=== PATIENT | male | born 1970 | race Caucasian/White ===

== ENCOUNTER 2021-03-22 21:56 | Observation (INO) | payer OTHER, SELFPAY ==
--- NOTE | ~2021-03-22 | CT_ITS ---
EXAMINATION: CTA chest PE protocol EXAM DATE: 03/22/2021 23:02 INDICATION: Dyspnea and elevated d-dimer. TECHNIQUE: Spiral CTA of the chest (pulmonary arteries) was performed with 100 cc Omnipaque 350 intr avenous contrast injection. Images were acquired during the pulmonary arterial phase. Coronal maxi mum intensity projection 3D-reconstructions were created by the technologist on dedicated workstation . Axial, coronal and sagittal reformatted images were reviewed. The dose-length product (DLP) for t his examination was 413.69 mGy-cm. The exposure was tailored according to patient size (auto mA exp osure control), and iterative reconstruction (ASIR) was used as additional dose reduction technique. There is no prior study for comparison. FINDINGS: Pulmonary arteries are well opacified and without intraluminal filling defects. Poor right heart function with contrast refluxing into the IVC and right hepatic vein. Mild prevascular, medias tinal lymphadenopathy. Some calcified subcarinal, right hilar lymph nodes from prior granulomatous pr ocess. Mild interlobular septal thickening suspicious for mild pulmonary edema. Aorta are not opacifi ed at time of imaging. The lungs are clear. There are no pleural or pericardial effusions. Trach eobronchial tree is patent. There is no mediastinal, hilar or axillary lymphadenopathy. There is no pneumothorax. Heart normal in size. There is mild coronary arterial calcification, arterial sc lerosis. Upper abdomen is unremarkable. There is thoracic spondylosis without osteoblastic or oste olytic lesions identified. IMPRESSION: 1. Findings consistent with CHF exacerbation. Mild pulmonary edema. 2. Mild mediastinal, prevascular lymphadenopathy most likely reactive. 3. No pulmonary emboli. Reviewed, dictated and finalized at location A.
--- NOTE | ~2021-03-22 | XR_ITS ---
EXAMINATION: XR chest 2V EXAM DATE: 03/22/2021 22:37 INDICATION: Shortness of breath. Chest pain, tachycardia. High blood pressure. TECHNIQUE: Frontal and lateral projections of the chest obtained and reviewed. Comparison is made to prior examination from 07/09/2020. FINDINGS: Right basilar granuloma. The lungs are otherwise clear. There are no pleural effusions. T he cardiomediastinal silhouette is within normal limits. There is no pneumothorax suspected. The neal lulu and soft tissues are unremarkable. IMPRESSION: No acute cardiopulmonary findings. Reviewed, dictated and finalized at location A.
[2021-03-22 22:02] VITALS: BP 124/100; PULSE 131; RESP 15; TEMP 37.2; O2SAT 98
--- NOTE | 2021-03-22 22:05 | ECG_ITS ---
Measurements Intervals [place] Rate: 130 P: 53 OK: 120 QRS: -11 QRSD: 84 T: 89 QT: 295 QTc: 434 Interpretive Statements SINUS TACHYCARDIA ANTEROSEPTAL INFARCT, AGE INDETERMINATE BORDERLINE T WAVE ABNORMALITY- LAT/HIGH LAT LEADS ABNORMAL ECG Electronically Signed On 03-23-2021 7:15:32 CDT by Bob Carson D.O.
[2021-03-22 22:13] LABS: Basophils Absolute Auto 0.1 K/mm3 (0.0-0.1); Basophils Percent Auto 0.6 % (0.2-1.2); Eosinophils Absolute Auto 0.1 K/mm3 (0-0.3); Eosinophils Percent Auto 0.5 % (0-4.4); Hematocrit 50.9 % (42.0-52.0); Hemoglobin 16.9 g/dL (14.0-18.0); Immature Granulocyte Absolute 0.03 K/mm3 (0.00-0.031); Immature Granulocyte Percent A 0.2 % (0-0.5); Lymphocytes Absolute Auto 4.32 K/mm3 (0.9-3.2); Lymphocytes Percent Auto 34.5 % (18.3-44.2); Mean Corpuscular HGB Conc 33.2 g/dl (32-36); Mean Corpuscular Hemoglobin 29.4 pg (26-34); Mean Corpuscular Volume 88.5 fl (80-100); Mean Platelet Volume 11.7 fl (7.4-10.4); Monocytes Absolute Auto 0.9 K/mm3 (0.1-0.6); Monocytes Percent Auto 7.1 % (2.6-8.5); Neutrophils Absolute Auto 7.1 K/mm3 (1.3-6.7); Neutrophils Percent Auto 57.1 % (45.5-73.1); Platelet Count Result 196 k/mm3 (150-375); Red Blood Count 5.75 M/mm3 (4.6-6.20); Red Cell Distribution Width 14.5 % (11.5-14.5); White Blood Count 12.5 K/mm3 (4.5-10.0)
--- NOTE | 2021-03-22 22:20 | ED.CHESTPAIN ---
HPI - Chest Pain General Chief Complaint: Chest Pain Stated Complaint: CP Time Seen by Provider: 03/22/21 22:02 Source: RN notes reviewed History of Present Illness HPI narrative: Patient presents emergency department from work for dyspnea and chest tightness. Patient states symptoms began yesterday states he began to notice that with exertion he would have increasing shortness of breath and a harder time catching his breath he states that with this he did feel a tightness across his chest. He states when he rests this resolves states the symptoms became worse this evening he also feels like his heart has been beating rapidly he denies any fevers or chills abdominal pain nausea vomiting. Denies any previous cardiac history Related Data Allergies Allergy/AdvReac Type Severity Reaction Status Date / Time codeine Allergy Anaphylaxis Verified 03/23/21 00:11 Review of Systems Review of Systems: Narrative: Gen.: Denies fevers or chills ENT: Denies congestion Respiratory: See HPI CV: See HPI GI: Denies abdominal pain nausea, emesis or diarrhea Musculoskeletal: Denies back pain or muscle pain Neuro: Denies numbness, tingling, weakness or focal weakness Skin: Denies rash Except as documented, all other systems reviewed and negative [facility] Past Medical History Medical History (Updated 03/23/21 @ 00:27 by Manas Cardenas DO) Asthma Social History Social History (Updated 03/22/21 @ 23:42 by Manas Cardenas DO) Smoking status: Never smoker Gender identity (if verbalized by the patient): Male Exam Narrative: Exam Narrative: APPEARANCE: No acute distress, nontoxic, resting in bed EYES: EOMI HEENT: Normocephalic, atraumatic, OMM RESPIRATORY: No respiratory distress Clear to auscultation bilaterally with no rhonchi wheezing or rales. CARDIOVASCULAR: Tachycardic and regular without murmurs rubs or gallops. ABDOMINAL: Soft, nontender, nondistended, no rebound or guarding MUSCULOSKELETAl: Moves all extremities. No clubbing, cyanosis or edema. NEURO: Awake and alert. Following commands, speech normal, no focal deficits SKIN:: Warm, dry. No rashes lesions or abrasions PSYCHIATRIC: Normal affect/mood, Course Course Emergency Course: Discussed with Dr. Macario presentation work-up discussed EKG an EKG was sent to Dr. Macario for review and feels no acute STEMI at this time. This time agrees with admission to their service. Request patient received Lasix and aspirin will follow as inpatient Discussed with patient and family results of workup and diagnosis. Discussed need for admission. Patient and family understand and agree to current treatment plan Vital Signs Vital signs: Vital Signs Temperature 98.9 F 03/22/21 22:02 Pulse Rate 131 H 03/22/21 22:02 Respiratory Rate 15 03/22/21 22:02 Blood Pressure 124/100 H 03/22/21 22:02 Pulse Oximetry 98 03/22/21 22:02 Temperature 98.9 F 03/22/21 22:02 Pulse Rate 124 H 03/22/21 22:41 Respiratory Rate 19 03/22/21 22:39 Blood Pressure 126/100 H 03/22/21 22:39 Pulse Oximetry 96 03/22/21 22:39 MDM - Chest Pain Lab Data Result diagrams: 03/22/21 22:08 03/22/21 22:08 Labs: Lab Results 03/22/21 03/22/21 03/22/21 Range/Units 22:08 22:08 22:08 WBC 12.5 H (4.5-10.0) K/mm3 RBC 5.75 (4.6-6.20) M/mm3 Hgb 16.9 (14.0-18.0) g/dL Hct 50.9 (42.0-52.0) % MCV 88.5 (80-100) fl MCH 29.4 (26-34) pg MCHC 33.2 (32-36) g/dl RDW 14.5 (11.5-14.5) % Plt Count 196 (150-375) k/mm3 MPV 11.7 H (7.4-10.4) fl Immature Gran % (Auto) 0.2 (0-0.5) % Neut % (Auto) 57.1 (45.5-73.1) % Lymph % (Auto) 34.5 (18.3-44.2) % [place] % (Auto) 7.1 (2.6-8.5) % Eos % (Auto) 0.5 (0-4.4) % Baso % (Auto) 0.6 (0.2-1.2) % Lymph # (Auto) 4.32 H (0.9-3.2) K/mm3 [place] # (Auto) 0.9 H (0.1-0.6) K/mm3 Eos # (Auto) 0.1 (0-0.3) K/mm3 Baso # (Auto) 0.1 (0.0-0.1) K/mm3 Abs I
[2021-03-22 22:23] LABS: Anion Gap 12 mmol/L (8-16); Blood Urea Nitrogen 16 mg/dL (9-20); Calcium 9.9 mg/dL (8.4-10.2); Carbon Dioxide 22 mmol/L (22-30); Chloride 107 mmol/L (98-107); Estimated CRCL calculation 77 ml/min; Estimated Glomerular Filt Rate > 60; Glucose 107 mg/dL (75-110); Potassium 4.5 mmol/L (3.4-5.0); Sodium 141 mmol/L (137-145)
[2021-03-22 22:28] LABS: INR 1.2; Prothrombin Time 15.6 Seconds (11.1-14.7)
[2021-03-22 22:29] LABS: Partial Thromboplastin Time 29.7 SECONDS (22.3-36.8)
[2021-03-22 22:31] LABS: D Dimer 1.06 ug/mL (<0.48)
[2021-03-22 22:35] LABS: Troponin I 0.025 ng/mL (0.000-0.034)
[2021-03-22 22:39] VITALS: BP 126/100; PULSE 123; RESP 19; O2SAT 96
[2021-03-22 22:41] VITALS: PULSE 124
[2021-03-22] MEDS: SODIUM CHLORIDE 0.9% IV 1,000 ML 999 ML IV CONT (22:42)
[2021-03-22] MEDS: ASPIRIN 81 MG CHEWABLE TABLET 324 MG PO (22:42)
[2021-03-22 22:45] VITALS: BP 119/97; PULSE 120; RESP 21; O2SAT 97
--- NOTE | 2021-03-22 23:25 | ECG_ITS ---
Measurements Intervals [place] Rate: 111 P: 68 OK: 163 QRS: -22 QRSD: 81 T: 60 QT: 326 QTc: 445 Interpretive Statements SINUS TACHYCARDIA LEFT ATRIAL ENLARGEMENT MINIMAL Q WAVES- INFERIOR LEADS ANTEROSEPTAL INFARCT, AGE INDETERMINATE BORDERLINE T WAVE ABNORMALITY- INF/HIGH LAT LEADS ABNORMAL ECG Electronically Signed On 03-23-2021 7:24:22 CDT by Bob Carson D.O.
[2021-03-22 23:30] VITALS: BP 108/88; PULSE 115; O2SAT 96
[2021-03-22 23:46] VITALS: BP 104/92; PULSE 115; RESP 19
[2021-03-23] VITALS (11 sets, daily range): BP systolic 110–125; BP diastolic 81–108; PULSE 106–125; RESP 11–25; TEMP 36.1–36.7; O2SAT 96–99; BMI 24.0
[2021-03-23 00:07] LABS: NT Pro B Type Natriuretic Pept 4860 pg/mL (5-100)
[2021-03-23] MEDS: FUROSEMIDE INJ 40 MG/4 ML VIAL IV PUSH (00:12)
--- NOTE | 2021-03-23 00:50 | PC.NURSE ---
Called floor to give report, floor states pt will go to ICU overflow. Floor will call back with room and bed number.
[2021-03-23] MEDS: ONDANSETRON INJ 4 MG/2 ML VIAL IV PUSH ×3 (02:30→18:34)
--- NOTE | 2021-03-23 02:36 | ADMIMU ---
This patient, Yunior Rodriguez, was admitted to IMU status, and placed in Intensive Care Unit-8. Patient/family oriented to hospital policies and general routines including ID bracelet, bed and alarms, visiting hours, pain management, procedures, bathroom and other care routines, personal items, smoking policy, room service/diet, and visiting hours. Valuables list has been completed. Information on how to activate the Rapid Response Team has been discussed. Patient/Family are encouraged to report perceived risks to care and to ask questions if they do not understand what they are told or what they should do.
[2021-03-23 02:51] LABS: Troponin I 0.025 ng/mL (0.000-0.034)
[2021-03-23 04:23] LABS: Basophils Absolute Auto 0.1 K/mm3 (0.0-0.1); Basophils Percent Auto 0.9 % (0.2-1.2); Eosinophils Absolute Auto 0.1 K/mm3 (0-0.3); Eosinophils Percent Auto 0.8 % (0-4.4); Hematocrit 45.4 % (42.0-52.0); Hemoglobin 15.2 g/dL (14.0-18.0); Immature Granulocyte Absolute 0.02 K/mm3 (0.00-0.031); Immature Granulocyte Percent A 0.2 % (0-0.5); Lymphocytes Absolute Auto 3.67 K/mm3 (0.9-3.2); Lymphocytes Percent Auto 38.3 % (18.3-44.2); Mean Corpuscular HGB Conc 33.5 g/dl (32-36); Mean Corpuscular Hemoglobin 29.5 pg (26-34); Mean Corpuscular Volume 88.2 fl (80-100); Mean Platelet Volume 11.4 fl (7.4-10.4); Monocytes Absolute Auto 0.7 K/mm3 (0.1-0.6); Monocytes Percent Auto 6.9 % (2.6-8.5); Neutrophils Absolute Auto 5.1 K/mm3 (1.3-6.7); Neutrophils Percent Auto 52.9 % (45.5-73.1); Platelet Count Result 172 k/mm3 (150-375); Red Blood Count 5.15 M/mm3 (4.6-6.20); White Blood Count 9.6 K/mm3 (4.5-10.0)
[2021-03-23 04:33] LABS: Anion Gap 8 mmol/L (8-16); Blood Urea Nitrogen 15 mg/dL (9-20); Calcium 8.9 mg/dL (8.4-10.2); Carbon Dioxide 25 mmol/L (22-30); Chloride 104 mmol/L (98-107); Estimated CRCL calculation 84 ml/min; Estimated Glomerular Filt Rate > 60; Glucose 102 mg/dL (75-110); Sodium 137 mmol/L (137-145)
[2021-03-23 04:45] LABS: Troponin I 0.026 ng/mL (0.000-0.034)
--- NOTE | 2021-03-23 06:00 | ECHO_ITS ---
Patient Info Name: Yunior Rodriguez Age: 51 years : 1970 Gender: Male Ht: 72 in Wt: 190 lbs BSA: 2.10 m2 HR: 112 bpm BP: 120 / 97 mmHg Heart Rhythm: Tachycardia, Sinus Rhythm Technical Quality: Good Exam Date: 03/23/2021 10:10 AM Exam Location: [facility] Pulmonary Patient Status: Outpatient Admit Date: 03/22/2021 Staff Ordering Physician: Manas Cardenas DO Sales Mgr: Jori Tello, NAWAF, RT Attending Provider: Antoinette Macario MD Referring Physician: Ronald VILLALBA; Exam Type: CA echo doppler color flow Study Info Indications R07.9 - Chest pain, unspecified Complete two-dimensional, color flow and Doppler transthoracic echocardiogram is performed. Strain analysis performed. Summary 1. Complete two-dimensional, color flow and Doppler transthoracic echocardiogram is performed. 2. Left ventricular chamber dimension is mildly enlarged. 3. Left ventricular systolic function is severely reduced, estimated at 25-30%. 4. The left ventricular diastolic function is grade II diastolic dysfunction. 5. Right ventricular chamber dimension is normal. 6. Right ventricular systolic function is reduced. 7. Although not clearly visualized, cannot exclude apical thrombus due to heavy trabeculation. 8. Right atrial chamber dimension is severely enlarged. 9. There is no aortic valve stenosis. 10. There is mild mitral valve regurgitation. 11. There is mild tricuspid valve regurgitation. 12. No pulmonary hypertension, estimated pulmonary arterial systolic pressure is 34 mmHg. 13. Dilated inferior vena cava with no collapse upon inspiration consistent with significantly elevated right atrial pressure, 15 mmHg. Left Ventricle Left ventricular chamber dimension is mildly enlarged. Left ventricular systolic function is severely reduced, estimated at 25-30%. There is no increased left ventricular wall thickness. The left ventricular diastolic function is grade II diastolic dysfunction. Global longitudinal strain is severely elevated at -4 %. Although not clearly visualized, cannot exclude apical thrombus due to heavy trabeculation. Right Ventricle Right ventricular chamber dimension is normal. Right ventricular systolic function is reduced. Left Atria Left atrial chamber dimension is mildly enlarged. Right Atria Right atrial chamber dimension is severely enlarged. Aortic Valve The aortic valve is not well visualized. There is no aortic valve stenosis. There is no aortic valve regurgitation. Pulmonic Valve The pulmonic valve is not well visualized. Mitral Valve The mitral valve has normal leaflets. There is mild mitral valve regurgitation. Tricuspid Valve The tricuspid valve leaflets are normal. There is mild tricuspid valve regurgitation. No pulmonary hypertension, estimated pulmonary arterial systolic pressure is 34 mmHg. Pericardium/Pleural The pericardium appears normal. There is trivial pericardial effusion. Inferior Vena Cava Dilated inferior vena cava with no collapse upon inspiration consistent with significantly elevated right atrial pressure, 15 mmHg. Aorta The aortic root size at the sinus of Valsalva is normal. Left Ventricular Outflow Tract Name Value Normal LVOT 2D LV
[2021-03-23] MEDS: ASPIRIN 81 MG CHEWABLE TABLET 324 MG PO ×2 (07:49→07:54)
[2021-03-23] MEDS: carvediloL 3.125 MG TABLET PO ×2 (14:47→21:00)
--- NOTE | 2021-03-23 15:17 | PM.IMHP ---
H&P: HPI History of Present Illness Date/Time: Date of service: 03/23/21 15:17 Cardiology H&P with chief complaint of shortness of breath and chest pain. Chief Complaint: Shortness of breath and chest pain the past 1-2 days. 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 Patient admits over the past 2 months he has been a bit fatigued, slightly more short of breath with some abdominal fullness otherwise quite mild and was able to remain active without marked limitation. He denies significant changes weight but did admit to or shortness of breath bending over progressively with past couple weeks in for the past few days more prominent exertional dyspnea and fatigue. Stairs and hills or particularly difficult for him. He denies fevers, chills or recent illnesses. 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 He states he was feeling 90% after COVID and remains very active caring for his 3 children. He has never experienced symptoms similar to this. CT angiogram of the chest revealed no pulmonary embolism, reactive lymphadenopathy with pulmonary vascular congestion and cardiomegaly. D-dimer was mildly elevated 1.0. He had flat indeterminate troponin 0.025. EKG abnormal with probable anterior [place] age undetermined. He has no known history of CAD, CHF. He denies lower extremity edema but admits to orthopnea. No history of LENNY. He drinks approximately 2 pots of caffeinated coffee as he works nights but states he sleeps well otherwise. He remains very active as an outpatient and had no limitations previously. No near-syncope, syncope. He noted occasional palpitations of late which is new and while hospitalized noted corresponding with PVCs and a nonsustained VT run. 2D echo obtained earlier today revealed EF 25-30%, no significant valve pathology. Severe right atrial enlargement, mild left atrial enlargement. He admits he has been under significant stress with relationships past couple of months. Review of Systems Review of Systems: All systems reviewed & are unremarkable except as noted in HPI and below Constitutional: Constitutional: Reports as per HPI, Reports no additional constitutional complaints and Reports fatigue Eyes: Eyes: Reports as per HPI and Reports no additional eye complaints ENT: Reports system reviewed and no additional complaints, except as documented and Reports as per HPI Cardiovascular: Cardiovascular: Reports as per HPI, Reports no additional cardiovascular complaints, Reports chest pain, Reports diaphoresis, Denies pedal edema, Denies leg edema and Reports palpitations Respiratory: Respiratory: Reports as per HPI, Reports no additional respiratory complaints, Denies hemoptysis, Reports dyspnea and Reports dyspnea on exertion Gastrointestinal: Gastrointestinal: Reports as per HPI, Reports no additional gastrointestinal complaints and Reports bloating Genitourinary: Genitourinary: Reports no additional male genitourinary complaints and Reports as per HPI Musculoskeletal: Musculoskeletal: Reports no additional musculoskeletal complaints and Reports as per HPI Integumentary/Breasts: Skin/Breast: Reports system reviewed and no additional complaints, except as docu and Reports as per HPI Neurologic: Reports system reviewed and no additional complaints, except as documented and Reports as per HPI Psychiatric: Psychiatric: Reports no additional psychiatric complaints, Reports as per HPI and Reports anxiety Endocrine: Endocrine: Reports no additional endocrine complaints and Reports as per HPI Hematologic/Lymphatic: Hematologic/Lymphatic: Reports no additional hematologic/lymphat
[2021-03-23] MEDS: ENOXAPARIN 40 MG/0.4 ML SYRINGE SUB-Q (21:00)
[2021-03-23] MEDS: SACUBITRIL/VALSARTAN 24-26 MG TABLET 1 TAB PO (21:00)
[2021-03-24] VITALS (24 sets, daily range): BP systolic 95–134; BP diastolic 71–90; PULSE 89–119; RESP 12–24; TEMP 36.2–37.2; O2SAT 94–98
--- NOTE | 2021-03-24 | ECHO_ITS ---
Patient Info Name: Yunior Rodriguez Age: 51 years : 1970 Gender: Male Ht: 72 in Wt: 177 lbs BSA: 2.02 m2 HR: 95 bpm BP: 95 / 71 mmHg Heart Rhythm: Tachycardia Technical Quality: Good Exam Date: 03/24/2021 7:51 AM Exam Location: [facility] Patient Status: Outpatient Admit Date: 03/22/2021 Staff Ordering Physician: Brad Saleem MD Waters[place] Manager: Kala Neely RDCS Attending Provider: Antoinette Macario MD Referring Physician: Harper KING; Exam Type: CA echo limited w contrast Study Info Indications - R/O THROMBUS LIMITED TWO-DIMENSIONAL TRANSTHORACIC ECHOCARDIOGRAM IS PERFORMED WITH CONTRAST. Contrast/Agitated Saline Contrast/Ag. Saline: Definity Amount: 1.00 ml Administered By: Vesna Stallworth RN Existing IV Access: Yes IV Access Condition: patent with no signs of infiltration Summary 1. Left ventricular chamber dimension is mildly enlarged. 2. Left ventricular systolic function is severely reduced, estimated at 20-25%. 3. There is no clearly thrombus visualized in the left ventricle with Definity contrast enhancement. Left Ventricle Left ventricular chamber dimension is mildly enlarged. Left ventricular systolic function is severely reduced, estimated at 20-25%. There is no clearly thrombus visualized in the left ventricle with Definity contrast enhancement. Ventricles Name Value Normal LV Fractional Shortening/Ejection Fraction 2D/MM LV Diastolic Volume (4C MOD) 140 ml LV EF (4C MOD) 16 % LV Diastolic Volume (2C MOD) 118 ml LV EF (2C MOD) 9 % LV Diastolic Volume (BP MOD) 129 ml 62-150 LV Diastolic Volume Index (BP MOD) 64 ml/m2 34-74 LV Systolic Volume (BP MOD) 112 ml 21-61 LV Systolic Volume Index (BP MOD) 56 ml/m2 11-31 LV EF (BP MOD) 13 % 52-72 LV Diastolic Length (4C) 8.3 cm LV Systolic Length (4C) 8.1 cm LV Stroke Volume (4C MOD) 23 ml Report Signatures
[2021-03-24 04:29] LABS: Hematocrit 45.2 % (42.0-52.0); Hemoglobin 15.4 g/dL (14.0-18.0); Mean Corpuscular HGB Conc 34.1 g/dl (32-36); Mean Corpuscular Hemoglobin 29.5 pg (26-34); Mean Corpuscular Volume 86.6 fl (80-100); Mean Platelet Volume 11.9 fl (7.4-10.4); Platelet Count Result 177 k/mm3 (150-375); Red Blood Count 5.22 M/mm3 (4.6-6.20); Red Cell Distribution Width 13.6 % (11.5-14.5)
[2021-03-24 04:39] LABS: Anion Gap 5 mmol/L (8-16); Blood Urea Nitrogen 15 mg/dL (9-20); Calcium 8.5 mg/dL (8.4-10.2); Carbon Dioxide 26 mmol/L (22-30); Chloride 105 mmol/L (98-107); Estimated CRCL calculation 92 ml/min; Estimated Glomerular Filt Rate > 60; Glucose 95 mg/dL (75-110); Potassium 3.8 mmol/L (3.4-5.0); Sodium 136 mmol/L (137-145)
[2021-03-24] MEDS: PERFLUTREN LIPID MICROSPHERES 1.5 ML VIAL DILUTED TO 10 ML TOTAL VOLUME IV PUSH (08:05)
[2021-03-24] MEDS: carvediloL 3.125 MG TABLET PO ×2 (08:29→19:41)
[2021-03-24] MEDS: SACUBITRIL/VALSARTAN 24-26 MG TABLET 1 TAB PO ×2 (08:29→19:42)
[2021-03-24] MEDS: ASPIRIN 81 MG CHEWABLE TABLET 324 MG PO (08:30)
[2021-03-24] MEDS: ONDANSETRON INJ 4 MG/2 ML VIAL IV PUSH (09:26)
--- NOTE | 2021-03-24 12:01 | WPDMODSED ---
Moderate Sedation Note-Pt Data Patient Data Diagnosis: New cardiomyopathy, CHF Present Complaint: fatigue Procedure to be performed/Plan: left heart catheterization with selective left and right coronary angiography with left ventriculography and hemodynamics and possible percutaneous intervention and stent implantation Allergies Allergy/AdvReac Type Severity Reaction Status Date / Time codeine Allergy Anaphylaxis Verified 03/23/21 00:11 Home Medications Medication Instructions Recorded Confirmed Type albuterol sulfate 2 puff INHALATION Q8H PRN 03/23/21 03/23/21 History sildenafil 100 mg PO DAILY PRN 03/23/21 03/23/21 History Current Medications: Active Medications Aspirin (Aspirin 81 Mg Chewable Tablet) 324 mg PO DAILY@0800 [facility] Last Admin: 03/24/21 08:30 Dose: 324 mg Documented by: Carvedilol (Carvedilol 3.125 Mg Tablet) 3.125 mg PO Q12HR [facility] Last Admin: 03/24/21 08:29 Dose: 3.125 mg Documented by: Enoxaparin Sodium (Enoxaparin 40 Mg/0.4 Ml Syringe) 40 mg SUB-Q DAILY [facility] Last Admin: 03/24/21 09:17 Dose: Not Given Documented by: Ondansetron HCl (Ondansetron Inj 4 Mg/2 Ml Vial) 4 mg IV PUSH Q6H PRN PRN Reason: Nausea And Vomiting Last Admin: 03/24/21 09:26 Dose: 4 mg Documented by: Sacubitril/Valsartan (Sacubitril/Valsartan 24-26 Mg Tablet) 1 tab PO Q12HR [facility] Last Admin: 03/24/21 08:29 Dose: 1 tab Documented by: Spironolactone (Spironolactone 25 Mg Tablet) 25 mg PO QAM [facility] Last Admin: 03/24/21 09:17 Dose: Not Given Documented by: Sedation/Anesthesia: No previous sedation/anesthesia problems (including family history). [facility] Past Medical History Medical History Asthma Chest pain CHF (congestive heart failure) Family History Family History Father Colon cancer Other No significant family history Social History Social History Smoking status: Never smoker Alcohol intake: current Substance use: never Gender identity (if verbalized by the patient): Male Sexual Orientation (if Verbalized by the Patient): Straight or Heterosexual Spiritual care concerns: No Mod Sed Physical Exam Physical Exam Pre Procedural Exam: Normal: Appearance, Eyes, Ears, Nose, Neck ( supple, normal range of motion), Throat ( posterior hypopharynx clear, nonerythematous), Airway ( no obstruction, normal anatomy), Lungs ( clear to auscultation bilaterally), Heart Size, Heart Rate, Heart Rhythm, Neuro Exam, Abdomen, Liver, Kidneys, Extremities and Skin Hours since solid foods: 12 Hours since liquid intake: 12 Internal Medicine - PN: Obj Da Vital Signs Vital Signs: Vital Signs - 24 hr 03/23/21 14:47 03/23/21 16:00 03/23/21 20:00 Temperature 36.3 C L Pulse Rate 123 H 116 H 111 H Respiratory Rate 20 15 Blood Pressure 119/108 H 110/81 Pulse Oximetry 98 97 03/24/21 00:00 03/24/21 02:00 03/24/21 04:00 Temperature 36.4 C L 36.5 C Pulse Rate 93 92 89 Respiratory Rate 16 14 Blood Pressure 99/82 L 95/71 L Pulse Oximetry 96 95 03/24/21 08:00 03/24/21 08:29 03/24/21 10:00 Temperature 36.8 C Pulse Rate 103 H 99 91 Respiratory Rate 18 Blood Pressure 111/79 Pulse Oximetry 95 Intake/Output Intake/Output: Intake & Output 03/21/21 03/22/21 03/23/21 03/24/21 23:59 23:59 23:59 23:59 Intake Total 1000 200 480 Output Total 1600 Balance 1000 -1400 480 Meds/Results Medications: Active Medications Generic Name Dose Route Start Last Admin Trade Name Freq PRN Reason Stop Dose Admin Aspirin 324 mg 03/23/21 08:00 03/24/21 08:30 Aspirin 81 Mg Chewable Tablet PO 324 mg DAILY@0800 [facility] Administration Carvedilol 3.125 mg 03/23/21 13:00 03/24/21 08:29 Carvedilol 3.125 Mg Tablet PO 3.125 mg Q12HR ALON Administration Enoxaparin Sodium 40 mg 03/23/21 21:00 03/24/21 09:17
--- NOTE | 2021-03-24 12:55 | WPDCARDPROC ---
Cardiac Cath Procedure Note Date of procedure:: 03/24/21 Performing physician:: Brad Saleem MD Indication:: new cardiomyopathy, CHF Brief clinical history:: BRIEF HISTORY OF PRESENT ILLNESS: Patient is a pleasant 51-year-old male with no significant past medical history Other than remote COVID 19 infection August 2020 and COVID vaccination series early 2020 who presented with progressive fatigue, exertional dyspnea and chest discomfort admitted with decompensated heart failure found to have severe LV systolic dysfunction ejection fraction approximately 25% indeterminate mild troponin elevation referred for coronary angiography for delineation of his coronary anatomy. Procedure Procedure performed:: PROCEDURES PERFORMED: 1. Left heart catheterization 2. Selective left and right coronary angiography 3. Left ventriculography and hemodynamics 4. Moderate/conscious sedation administration CATHETERS UTILIZED: Left coronary system- 5 Finnish JL4 catheter Right coronary system- 5 Finnish JR4 catheter Left ventriculography and hemodynamics- 5 Finnish angled pigtail catheter PROCEDURE IN DETAIL: After verbal and written informed consent was obtained the patient, risks, benefits, and alternatives explained in detail the patient agreed to proceed with the plan of care as outlined above. The patient was subsequently brought to the cardiac catheterization lab, placed on the cardiac catheterization table, and prepped and draped in the usual sterile fashion. Utilizing approximately 10cc of 1% subcutaneous Lidocaine, the right groin was then locally anesthetized. Utilizing the modified Seldinger technique, a 5 Finnish arterial vascular access sheath was inserted in the right common femoral artery easily and without complications. Through this access, coronary angiography was subsequently obtained in multiple standard re-projections. Following this, a 5 Finnish angled pigtail catheter was advanced retrograde across aortic valve into the cavity of the left ventricle. Left ventriculography was performed and pullback across aortic valve was subsequently recorded. The vascular access sheath and angiographic catheters were flushed before and after catheter exchanges. At the conclusion of the diagnostic portion of the procedure, all angiographic guidewires and catheters were removed and the 5 Finnish arterial vascular access sheath was then pulled and satisfactory hemostasis was achieved using manual compression. There no complications noted at the conclusion of the diagnostic portion of the study. Sedation/Medication given:: MODERATE SEDATION/ANESTHESIA ADMINISTRATION: Patient reports no prior problems with sedation/anesthesia. Please see pre-sedation noted for physical examination documentation. Sedation start time was 1206 and end time was 1244 for a total intra-service/procedure face-face time of 38 minutes. A total of 1 mg intravenous Versed and a total of 50 mcg intravenous Fentanyl was administered for moderate sedation. Moderate sedation was administered by qualified/certified observer Eric Peñaloza RN under my supervision with intra-procedure [id number] observation and management throughout the entirety of the procedure. There were no other issues or complications and patient tolerated the procedure well. See post-anesthesia documentation. Access site:: right femoral arterial Estimated blood loss:: 5-10 cc Findings:: CORONARY ANGIOGRAPHY: The LEFT MAIN arose from the left coronary cusp and was without angiographically significant disease. The left main then bifurcated into the left anterior descending artery and circumflex coronary artery. LEFT ANTERIOR DESCENDING ARTERY: Moderate caliber vessel giving rise to 1st and 2nd diagonal branches without angiographic disease extending toward LV apex. Of note, sluggish antegrade flow consistent with ANIBAL 2. CIRCUMFLEX CORONARY ARTERY: moderate caliber nondominant vessel giving rise to 1st and
[2021-03-24] MEDS: SODIUM CHLORIDE 0.9% IV 1,000 ML 100 ML IV CONT (13:30)
[2021-03-24] MEDS: MELATONIN 5 MG TABLET PO (22:57)
[2021-03-24] MEDS: ACETAMINOPHEN 325 MG TABLET 650 MG PO (22:57)
[2021-03-25] VITALS: BP 98/65; PULSE 104; PULSE 108; RESP 22; TEMP 37.3; O2SAT 95
[2021-03-25 02:00] VITALS: PULSE 105
[2021-03-25 04:00] VITALS: BP 100/55; PULSE 99; RESP 16; O2SAT 96
[2021-03-25 06:00] VITALS: PULSE 100
[2021-03-25 08:00] VITALS: BP 113/90; PULSE 103; RESP 20; TEMP 36.5; O2SAT 100
--- NOTE | 2021-03-25 08:20 | PC.NURSE ---
[facility] flyer was given to patient.
--- NOTE | 2021-03-25 09:37 | PM.DS ---
DS: Admitting Diagnosis Admitting Diagnosis Admitting Diagnosis: Heart failure DS: Discharge Diagnosis Discharge Diagnosis (1) Heart failure with reduced ejection fraction: Code(s): I50.20 - Unspecified systolic (congestive) heart failure Status: Acute Assessment and Plan: New diagnosis nonischemic cardiomyopathy with LV systolic dysfunction EF 25-30%. -Medical therapy has been initiated includin) Entresto 2) Carvedilol 3) Spironolactone 4) Furosemide -He has been fitted with a LifeVest due to his increased risk for ventricular arrhythmias and sudden cardiac . -He will follow up in our office in 2 weeks for optimization of his medical therapy -Patient to monitor for s/s heart failure and communicate with our office with any worsening symptoms (2) Abnormal EKG: Code(s): R94.31 - Abnormal electrocardiogram [ECG] [EKG] Status: Acute Assessment and Plan: Suggestive prior anterior MD although clinical history does not corroborate. Indeterminate troponin elevation not consistent with NSTEMI. Coronary angiography results showed: 1. Angiographically normal coronary anatomy 2. Severe dilated nonischemic cardiomyopathy ejection fraction 20-25% 3. Elevated left ventricular end-diastolic filling pressure at 22 mmHg 4. No hemodynamically significant aortic stenosis or mitral regurgitation (3) Cardiomyopathy: Code(s): I42.9 - Cardiomyopathy, unspecified Status: Acute Assessment and Plan: See above for HFrEF (4) Chest pain: Code(s): R07.9 - Chest pain, unspecified Status: Acute Assessment and Plan: Resolve, most likely secondary to volume overload and pulmonary vascular congestion in setting of severe LV dysfunction. DS: Summary Hospital Course Reason for hospitalization: Chest pain, heart failure Hospital Course: Admitted to the hospital following SOB and chest pain for 2 days. 2D echo obtained on admission revealed reduced systolic function with an EF of 25-30%. He underwent an ischemic evaluation with coronary angiography due to this newly found reduced systolic function and abnormal EKG. Coronary angiography did not reveal any coronary artery disease, suggesting a nonischemic etiology of heart failure. He was initiated on medical therapy for this new cardiomyopathy including entresto, spironolactone, furosemide, and carvedilol. He was approved for and fitted with a life vest. At this time his presenting symptoms have resolved and he is appropriate for discharge to home. Status at Discharge Functional status at discharge: independent ambulation Overall status at discharge: patient is progressing back to baseline Time Spent with Patient Time attestation: Total time spent providing and/or coordinating discharge services: 45 minutes Exam Const: General: comfortable and no acute distress HENMT: Head: normal to inspection and normocephalic Eyes: General: appearance normal, both eyes and all related structures Neck: Neck: supple and no JVD Resp: Effort & Inspection: normal respiratory effort Auscultation: clear to auscultation bilaterally Cardio: Rate: regular rate Rhythm: regular rhythm Heart sounds: no gallops and no murmurs GI: GI Palp: Yes Soft to palpation Auscultation: normal bowel sounds Skin: General skin exam: normal color Neuro: General: gait normal Extrem: General: normal to inspection and no pedal edema Psych: Mental Status: mental status grossly normal Discharge Plan Discharge Attending physician on discharge: Brad Slaeem Discharging Clinician: Brad Saleem Patient Disposition: Home, Self-Care Activity: other - see discharge instructions Diet: heart healthy Wound Care Instructions: other - see discharge instructions Discharge Instructions: [facility]
[2021-03-25] MEDS: SPIRONOLACTONE 25 MG TABLET PO (09:45)
[2021-03-25] MEDS: SACUBITRIL/VALSARTAN 24-26 MG TABLET 1 TAB PO (09:45)
[2021-03-25 09:46] VITALS: PULSE 100
[2021-03-25] MEDS: carvediloL 3.125 MG TABLET PO (09:46)
--- NOTE | 2021-03-25 14:14 | PM.PNCARD ---
Progress Note: A&P Assessment and Plan (1) Heart failure with reduced ejection fraction: Code(s): I50.20 - Unspecified systolic (congestive) heart failure Status: Acute Assessment and Plan: New diagnosis nonischemic cardiomyopathy with LV systolic dysfunction EF 25-30%. -Medical therapy has been initiated includin) Entresto 2) Carvedilol 3) Spironolactone 4) Furosemide -He has been fitted with a LifeVest due to his increased risk for ventricular arrhythmias and sudden cardiac . -He will follow up in our office in 2 weeks for optimization of his medical therapy -Patient to monitor for s/s heart failure and communicate with our office with any worsening symptoms Discussed at length limitations, ventricular arrhythmia/sudden cardiac risk. His ability to return to work will be dependent upon his symptoms intolerance. He reports he is not eligible for disability or FMLA. Will up titrate medical therapy and his visit as an outpatient as tolerated. Patient verbalized understanding and agreed with plan of care. All questions answered to his satisfaction. Patient stable for discharge home. He has been encouraged to communicate any new questions, concerns limitations. CHF counseling performed. Will monitor daily weight report significant changes or new limitations. I have advised him not to engage in strenuous activity, extreme to temperature including riding his motorcycle. Well he does not technically have a restriction with driving practical caution should be exercised. (2) Abnormal EKG: Code(s): R94.31 - Abnormal electrocardiogram [ECG] [EKG] Status: Acute Assessment and Plan: Suggestive prior anterior AL although clinical history does not corroborate. Indeterminate troponin elevation not consistent with NSTEMI. Coronary angiography results showed: 1. Angiographically normal coronary anatomy 2. Severe dilated nonischemic cardiomyopathy ejection fraction 20-25% 3. Elevated left ventricular end-diastolic filling pressure at 22 mmHg 4. No hemodynamically significant aortic stenosis or mitral regurgitation (3) Cardiomyopathy: Code(s): I42.9 - Cardiomyopathy, unspecified Status: Acute Assessment and Plan: See above for HFrEF Compensated, EF 25%. LifeVest in place. (4) Chest pain: Code(s): R07.9 - Chest pain, unspecified Status: Acute Assessment and Plan: Resolved. Secondary to volume overload and pulmonary vascular congestion in setting of severe LV dysfunction. Subjective Date/time seen: date of service: 06/09/21 14:14 Follow-up for new diagnosis of cardiomyopathy, CHF feels much better overall. Had mild bleeding at catheterization side after ambulating with cough yesterday evening. As such he was observed overnight with no significant hematoma or new complications. No recurrent bleeding. Intermittently he feels much better without significant dyspnea able to walk around the unit 3 times without stopping which is a marked improvement. No chest pain, dizziness. Blood pressure stable. Tolerating medications well. Patient really wants to be discharged home. Review of Systems Review of Systems: All systems reviewed & are unremarkable except as noted in HPI and below Constitutional: Constitutional: Reports as per HPI, Reports no additional constitutional complaints and Reports fatigue Eyes: Eyes: Reports as per HPI and Reports no additional eye complaints ENT: Reports system reviewed and no additional complaints, except as documented and Reports as per HPI Cardiovascular: Cardiovascular: Reports as per HPI, Reports no additional cardiovascular complaints, Reports chest pain, Reports diaphoresis, Denies pedal edema, Denies leg edema, Reports palpitations, Reports dyspnea and Reports dyspnea on exertion Respiratory: Respiratory: Reports as per HPI, Reports no additional respiratory complaints, Denies hemoptysis
== END 2021-03-25 10:05 | disposition home or self-care (01) ==
LOC: ANHED 03-23 00:28 → ANHICU 03-23 10:37 → ANHIMU 03-26 15:55
PROVIDERS: Admitting Provider Internal Medicine Cardiovascular Disease; Emergency Provider Emergency Medicine; Visit Provider Internal Medicine Cardiovascular Disease
PROC: 4A023N7 Measurement of Cardiac Sampling and Pressure, Left Heart, Percutaneous Approach (ICD-10-PCS; CPT 93452; principal; 2021-03-24 10:00)
DX: I50.20 Unspecified systolic (congestive) heart failure (principal); R07.9 Chest pain, unspecified; R06.02 Shortness of breath; R94.31 Abnormal electrocardiogram [ECG] [EKG]; I42.9 Cardiomyopathy, unspecified
CPT/HCPCS: 36415; 71046; 71275; 80048; 83880; 84484; 85025; 85027; 85380; 85610; 85730; 93005; 93306; 93308; 93458; 96361; 96372; 96374; 96375; 96376; 99285; A9270; C1887; C1894; C8924; G0378; J0461; J1644; J1650; J1940; J2250; J2405; J3010; J7030; J7040; Q9957; Q9967